=== PATIENT | male | born 1965 | race Caucasian/White ===

== ENCOUNTER 2020-09-12 08:23 | Day surgery (SDC) | payer BC ==
[2020-09-02 11:05] VITALS: BMI 38.0
[2020-09-12] MEDS ORDERED: traMADol HCL 50 MG TABLET PO PRN (09:06)
[2020-09-12] MEDS ORDERED: ONDANSETRON 4 MG/2 ML VIAL IVPUSH PRN (09:06)
[2020-09-12] MEDS ORDERED: oxyCODONE HCL 5 MG TABLET PO PRN (09:06)
[2020-09-12] MEDS ORDERED: LACTATED RINGERS SOLUTION 1,000 ML IV SCH (09:15)
[2020-09-12] MEDS ORDERED: ROPIVACAINE HCL 0.5% 30ML VIAL ONE (09:23)
[2020-09-12] MEDS ORDERED: MIDAZOLAM HCL 2 MG/2 ML SINGLE DOSE VIAL ONE (09:23)
[2020-09-12] MEDS ORDERED: PROPOFOL 20 ML ONE ×2 (09:50→10:27)
[2020-09-12] MEDS ORDERED: EPHEDRINE SULFATE/0.9% NACL/PF 50 MG/10 ML SYRINGE NR ONE (10:04)
[2020-09-12] MEDS ORDERED: oxyCODONE HCL 5 MG TABLET ONE (12:20)
[2020-09-12] MEDS ORDERED: ONDANSETRON 4 MG/2 ML VIAL ONE (12:21)
[2020-09-12 14:59] VITALS: TEMP 97.7
[2020-09-12 15:05] VITALS: BP 117/64; PULSE 94
== END 2020-09-12 14:40 | disposition home or self-care (01) ==
LOC: FASU 08:23
PROVIDERS: ATTEND Orthopaedic Surgery Sports Medicine
PROC: 0SSG0ZZ Reposition Left Ankle Joint, Open Approach (ICD-10-PCS; principal; 2020-09-12 10:15)
DX: S82.862A Displaced Maisonneuve's fracture of left leg, initial encounter for closed fracture (principal); S93.432A Sprain of tibiofibular ligament of left ankle, initial encounter; X58.XXXA Exposure to other specified factors, initial encounter; Y93.9 Activity, unspecified; Y92.9 Unspecified place or not applicable
CPT/HCPCS: 27829; C1713; 73610-TC-LT-FY; 73630-TC-LT; 76000-TC-FY; 82962; 94760

== ENCOUNTER 2020-10-20 21:07 | Inpatient (IN) | payer BC ==
[2020-10-20] MEDS ORDERED: SODIUM CHLORIDE 1,000 ML IV SCH (22:15)
[2020-10-20 22:27] LABS: BASO % 0.7 % (0-2.0); EOS % 3.7 % (0-4.5); HEMATOCRIT 41.5 % (35.4-49); HEMOGLOBIN 14.5 GM/dl (11.7-16.9); LYMPH % 11.7 % (8-40); MCH 33.3 pg (25.7-33.7); MEAN CELL VOLUME 95.3 fl (80-96); MEAN PLT VOLUME 9.3 fl (7.5-11.1); MONO % 6.5 % (3.8-10.2); NEUT % 77.4 % (42.8-82.8); PLATELET COUNT 151 10^3/uL (134-434); RBC 4.36 M/mm3 (4.00-5.60); RDW 13.2 % (11.9-15.9); WHITE BLOOD COUNT 6.1 K/mm3 (4.0-10.8)
[2020-10-20 22:29] LABS: ALBUMIN 4.1 g/dl (3.4-5.0); ALK PHOS 81 U/L (45-117); ANION GAP 15 MMOL/L (8-16); BILIRUBIN,TOTAL 1.4 mg/dl (0.2-1); CALCIUM 8.8 mg/dl (8.5-10); CHLORIDE 99 mmol/L (98-107); CO2 21 mmol/L (21-32); CREATININE 1.2 mg/dl (0.55-1.3); GLUCOSE,RANDOM 106 mg/dl (74-106); INR 1.27 (0.82-1.09); SGOT/AST 48 U/L (15-37); SGPT/ALT 49 U/L (13-61); SODIUM 135 mmol/L (136-145); TOT PROT 7.3 g/dl (6.4-8.2)
[2020-10-20] MEDS ORDERED: ACETAMINOPHEN 1000 MG/100 ML VIAL (NON FORMULARY) IVPB ONE (23:26)
[2020-10-21 01:03] VITALS: BMI 34.1
[2020-10-21] MEDS ORDERED: ACETAMINOPHEN 1000 MG/100 ML VIAL (NON FORMULARY) IVPB PRN (05:30)
[2020-10-21] MEDS: INSULIN SLIDING SCALE (NOVOLOG) 1 VIAL SQ SCH ×4 (06:54→21:34)
[2020-10-21] MEDS: DEXTROSE 5%-NORMAL SALINE 1,000 ML IV SCH (06:54)
[2020-10-21 08:18] LABS: CALCIUM 8.4 mg/dl (8.5-10); CREATININE 0.9 mg/dl (0.55-1.3)
[2020-10-21 08:19] LABS: INR 1.33 (0.82-1.09); PROTHROMBIN TIME (PATIENT) 14.6 SEC (10.2-13.0)
[2020-10-21 08:21] LABS: BASO % 0.6 % (0-2.0); EOS % 4.6 % (0-4.5); HEMATOCRIT 37.8 % (35.4-49); HEMOGLOBIN 12.9 GM/dl (11.7-16.9); LYMPH % 11.7 % (8-40); MCH 32.3 pg (25.7-33.7); MEAN CELL VOLUME 95.1 fl (80-96); MEAN PLT VOLUME 9.2 fl (7.5-11.1); MONO % 8.2 % (3.8-10.2); NEUT % 74.9 % (42.8-82.8); PLATELET COUNT 130 10^3/uL (134-434); RBC 3.98 M/mm3 (4.00-5.60); RDW 13.4 % (11.9-15.9); WHITE BLOOD COUNT 5.1 K/mm3 (4.0-10.8)
[2020-10-21] MEDS ORDERED: MIDAZOLAM HCL 2 MG/2 ML SINGLE DOSE VIAL ONE (11:45)
[2020-10-21] MEDS ORDERED: SUCCINYLCHOLINE CHLORIDE 200 MG/10 ML SYRINGE ONE (11:52)
[2020-10-21] MEDS ORDERED: VANCOMYCIN 1,000 MG VIAL (RESTRICTED TO ID ONLY) ONE ×2 (11:55→12:19)
[2020-10-21] MEDS ORDERED: ONDANSETRON 4 MG/2 ML VIAL ONE (12:08)
[2020-10-21] MEDS ORDERED: oxyCODONE HCL 5 MG TABLET PO PRN (13:07)
[2020-10-21] MEDS ORDERED: ONDANSETRON 4 MG/2 ML VIAL IVPUSH PRN (13:07)
[2020-10-21] MEDS: LACTATED RINGERS SOLUTION 1,000 ML IV SCH (14:44)
[2020-10-21] MEDS ORDERED: CEFEPIME HCL 2 GM VIAL (RESTRICTED TO ID) ONE (17:19)
[2020-10-21] MEDS ORDERED: DEXTROSE 5%-WATER 100 ML IVPB ONE (17:19)
[2020-10-21] MEDS: CEFEPIME 2 GM in DEXTROSE 5%-WATER 100 ML IVPB SCH (17:22)
[2020-10-21] MEDS: ATORVASTATIN CA 10 MG TABLET (FP) PO SCH (21:34)
[2020-10-21] MEDS: PANTOPRAZOLE 40 MG TABLET PO SCH (21:34)
[2020-10-21] MEDS: VANCOMYCIN 1 GRAM (PRE-DOCKED) 1,000 MG/250 ML BAG IVPB SCH (23:13)
[2020-10-22] MEDS ORDERED: CEFEPIME HCL 2 GM VIAL (RESTRICTED TO ID) ONE ×3 (01:07→17:31)
[2020-10-22] MEDS ORDERED: DEXTROSE 5%-WATER 100 ML IVPB ONE ×3 (01:07→17:31)
[2020-10-22] MEDS: CEFEPIME 2 GM in DEXTROSE 5%-WATER 100 ML IVPB SCH ×3 (01:08→17:39)
[2020-10-22] MEDS: DEXTROSE 5%-NORMAL SALINE 1,000 ML IV SCH (06:28)
[2020-10-22] MEDS: INSULIN SLIDING SCALE (NOVOLOG) 1 VIAL SQ SCH ×4 (06:29→22:09)
[2020-10-22 07:52] LABS: BASO % 0.8 % (0-2.0); EOS % 5.4 % (0-4.5); MCH 32.4 pg (25.7-33.7); MCHC 34.2 g/dl (32.0-35.9); MEAN CELL VOLUME 94.8 fl (80-96); MEAN PLT VOLUME 8.9 fl (7.5-11.1); MONO % 9.8 % (3.8-10.2); PLATELET COUNT 152 10^3/uL (134-434); RBC 4.01 M/mm3 (4.00-5.60); RDW 13.6 % (11.9-15.9); WHITE BLOOD COUNT 4.8 K/mm3 (4.0-10.8)
[2020-10-22 07:59] LABS: ALBUMIN 3.7 g/dl (3.4-5.0); BILIRUBIN,TOTAL 1.1 mg/dl (0.2-1); CREATININE 0.7 mg/dl (0.55-1.3); MAGNESIUM 1.7 mg/dL (1.8-2.4); TOT PROT 6.9 g/dl (6.4-8.2)
[2020-10-22] MEDS: HYDROCHLOROTHIAZIDE 25 MG TABLET (FP) PO SCH (09:30)
[2020-10-22] MEDS ORDERED: MAGNESIUM OXIDE 400 MG TABLET (FP) PO ONE (09:30)
[2020-10-22] MEDS: amLODIPine BESYLATE 10 MG TABLET (FP) PO SCH (09:30)
[2020-10-22] MEDS: MULTIVITAMINS (DAILY MVI) TABLET (FP) PO SCH (09:30)
[2020-10-22] MEDS: LOSARTAN POTASSIUM 50 MG TABLET PO SCH (09:30)
[2020-10-22] MEDS ORDERED: PATIENT'S OWN MEDICATION (NON-FORMULARY) (Olmesartan/Amlodipin/Hcthiazid [Olmsrtn-Amldpn-H PO SCH (10:00)
[2020-10-22] MEDS: VANCOMYCIN 1 GRAM (PRE-DOCKED) 1,000 MG/250 ML BAG IVPB SCH (11:42)
[2020-10-22] MEDS: ENOXAPARIN NA (PORCINE) 40 MG/0.4 ML DISP.SYRIN SQ SCH (12:40)
[2020-10-22] MEDS: LACTATED RINGERS SOLUTION 1,000 ML IV SCH (17:39)
[2020-10-22] MEDS: PANTOPRAZOLE 40 MG TABLET PO SCH (22:09)
[2020-10-22] MEDS: ATORVASTATIN CA 10 MG TABLET (FP) PO SCH (22:09)
[2020-10-23] MEDS ORDERED: DEXTROSE 5%-WATER 100 ML IVPB ONE ×3 (02:55→18:17)
[2020-10-23] MEDS ORDERED: CEFEPIME HCL 2 GM VIAL (RESTRICTED TO ID) ONE ×3 (02:55→18:17)
[2020-10-23] MEDS: CEFEPIME 2 GM in DEXTROSE 5%-WATER 100 ML IVPB SCH ×3 (03:00→18:30)
[2020-10-23] MEDS: INSULIN SLIDING SCALE (NOVOLOG) 1 VIAL SQ SCH ×4 (06:49→21:25)
[2020-10-23] MEDS: amLODIPine BESYLATE 10 MG TABLET (FP) PO SCH (11:21)
[2020-10-23] MEDS: HYDROCHLOROTHIAZIDE 25 MG TABLET (FP) PO SCH (11:21)
[2020-10-23] MEDS: LOSARTAN POTASSIUM 50 MG TABLET PO SCH (11:22)
[2020-10-23] MEDS: MULTIVITAMINS (DAILY MVI) TABLET (FP) PO SCH (11:22)
[2020-10-23] MEDS: ENOXAPARIN NA (PORCINE) 40 MG/0.4 ML DISP.SYRIN SQ SCH (11:22)
[2020-10-23] MEDS: VANCOMYCIN 1 GRAM (PRE-DOCKED) 1,000 MG/250 ML BAG IVPB SCH ×2 (12:30)
[2020-10-23] MEDS: LACTATED RINGERS SOLUTION 1,000 ML IV SCH (15:53)
[2020-10-23] MEDS ORDERED: LOCK ITEM NR ONE (19:54)
[2020-10-23] MEDS: ATORVASTATIN CA 10 MG TABLET (FP) PO SCH (21:25)
[2020-10-23] MEDS: PANTOPRAZOLE 40 MG TABLET PO SCH (21:25)
[2020-10-24] MEDS: CEFEPIME 2 GM in DEXTROSE 5%-WATER 100 ML IVPB SCH ×2 (02:32→11:13)
[2020-10-24] MEDS ORDERED: CEFEPIME HCL 2 GM VIAL (RESTRICTED TO ID) ONE ×2 (03:13→11:08)
[2020-10-24] MEDS ORDERED: DEXTROSE 5%-WATER 100 ML IVPB ONE ×2 (03:14→11:08)
[2020-10-24] MEDS: INSULIN SLIDING SCALE (NOVOLOG) 1 VIAL SQ SCH ×3 (06:20→16:28)
[2020-10-24 06:51] VITALS: PULSE 82
[2020-10-24 09:58] VITALS: BP 118/69; TEMP 98.3
[2020-10-24] MEDS: MULTIVITAMINS (DAILY MVI) TABLET (FP) PO SCH (11:13)
[2020-10-24] MEDS: LOSARTAN POTASSIUM 50 MG TABLET PO SCH (11:13)
[2020-10-24] MEDS: HYDROCHLOROTHIAZIDE 25 MG TABLET (FP) PO SCH (11:13)
[2020-10-24] MEDS: VANCOMYCIN 1 GRAM (PRE-DOCKED) 1,000 MG/250 ML BAG IVPB SCH ×2 (11:13)
[2020-10-24] MEDS: amLODIPine BESYLATE 10 MG TABLET (FP) PO SCH (11:14)
[2020-10-24] MEDS ORDERED: CASPOFUNGIN ACETATE 70 MG in SODIUM CHLORIDE 250 ML IVPB ONE (11:30)
[2020-10-24] MEDS: ENOXAPARIN NA (PORCINE) 40 MG/0.4 ML DISP.SYRIN SQ SCH (12:35)
[2020-10-24] MEDS: LACTATED RINGERS SOLUTION 1,000 ML IV SCH (14:49)
[2020-10-24] MEDS ORDERED: DAPTOMYCIN 600 MG in SODIUM CHLORIDE 50 ML IVPB SCH ×2 (15:00)
== END 2020-10-24 18:44 | disposition home or self-care (01) | DRG 862 ==
LOC: FER 21:07 → FM/S 23:05 → UNDOADMIN 10-21 00:09 → FM/S 10-21 00:09
PROVIDERS: ADMIT Internal Medicine; ATTEND Nurse Practitioner Acute Care
PROC: 3E10X8X Irrigation of Skin and Mucous Membranes using Irrigating Substance, Diagnostic (ICD-10-PCS; 2020-10-21)
PROC: 2W1TX6Z Compression of Left Foot using Pressure Dressing (ICD-10-PCS; 2020-10-21)
PROC: 0HDNXZZ Extraction of Left Foot Skin, External Approach (ICD-10-PCS; principal; 2020-10-21 12:16)
PROC: 02HV33Z Insertion of Infusion Device into Superior Vena Cava, Percutaneous Approach (ICD-10-PCS; 2020-10-24)
PROC: B548ZZA Ultrasonography of Superior Vena Cava, Guidance (ICD-10-PCS; 2020-10-24)
DX: T81.41XA Infection following a procedure, superficial incisional surgical site, initial encounter (principal); A41.1 Sepsis due to other specified staphylococcus; K21.9 Gastro-esophageal reflux disease without esophagitis; E78.00 Pure hypercholesterolemia, unspecified; I10 Essential (primary) hypertension; B95.7 Other staphylococcus as the cause of diseases classified elsewhere; Y83.8 Other surgical procedures as the cause of abnormal reaction of the patient, or of later complication, without mention of misadventure at the time of the procedure; E11.9 Type 2 diabetes mellitus without complications; T81.44XA Sepsis following a procedure, initial encounter
CPT/HCPCS: 36415; 36569; 71045-TC-FY; 77001-TC-FY; 80048; 80053; 82550; 82962; 83605; 83735; 84484; 85025; 85610; 85730; 86850; 86900; 86901; 87040; 87070; 87102; 87106; 87116; 87186; 87205; 87206; 87210; 93005; 94760; 99285-25; C1751; C9803; J0131; J0878; U0003; U0005

== ENCOUNTER 2020-12-12 11:06 | Day surgery (SDC) | payer BC ==
[2020-12-09 16:33] VITALS: BMI 34.1
[2020-12-12] MEDS ORDERED: MIDAZOLAM HCL 2 MG/2 ML SINGLE DOSE VIAL ONE ×3 (13:22→14:39)
[2020-12-12] MEDS ORDERED: fentaNYL CITRATE 250 MCG/5 ML VIAL ONE (13:22)
[2020-12-12] MEDS ORDERED: PROPOFOL 20 ML ONE ×4 (13:59→14:41)
[2020-12-12] MEDS ORDERED: BUPIVACAINE HCL 50 ML ONE (14:13)
[2020-12-12] MEDS ORDERED: BUPIVACAINE HCL 100 ML ONE (14:40)
[2020-12-12] MEDS ORDERED: DEXAMETHASONE SOD PHOSPHATE 4 MG/1 ML VIAL ONE (14:53)
[2020-12-12] MEDS ORDERED: ONDANSETRON 4 MG/2 ML VIAL ONE (14:53)
[2020-12-12] MEDS ORDERED: PHENYLEPHRINE HCL 10 MG/1 ML SINGLE DOSE VIAL ONE (14:53)
[2020-12-12] MEDS ORDERED: ceFAZolin SODIUM 1 GM VIAL ONE (14:55)
[2020-12-12] MEDS ORDERED: POTASSIUM CHLORIDE TABS 20 MEQ TABLET.ER (FP) PO ONE (16:18)
[2020-12-12] MEDS ORDERED: ONDANSETRON 4 MG/2 ML VIAL IVPUSH PRN (16:18)
[2020-12-12] MEDS ORDERED: ACETAMINOPHEN 1000 MG/100 ML VIAL IVPB PRN (16:19)
[2020-12-12] MEDS ORDERED: KETOROLAC TROMETHAMINE 30 MG/1 ML VIAL IVPUSH PRN (16:19)
[2020-12-12] MEDS ORDERED: LACTATED RINGERS SOLUTION 1,000 ML IV SCH (16:30)
[2020-12-12] MEDS: VALSARTAN 160 MG TABLET PO SCH (17:59)
[2020-12-12] MEDS: HYDROCHLOROTHIAZIDE 25 MG TABLET (FP) PO SCH (18:00)
[2020-12-12] MEDS ORDERED: CASPOFUNGIN ACETATE 50 MG in SODIUM CHLORIDE 250 ML IVPB ONE (18:00)
[2020-12-12] MEDS: amLODIPine BESYLATE 10 MG TABLET (FP) PO SCH (18:00)
[2020-12-12] MEDS ORDERED: DAPTOMYCIN 600 MG in SODIUM CHLORIDE 50 ML IVPB ONE (18:00)
[2020-12-12 18:35] LABS: CALCIUM 8.8 mg/dl (8.5-10); CREATININE 0.8 mg/dl (0.55-1.3)
[2020-12-12] MEDS ORDERED: PANTOPRAZOLE 40 MG TABLET PO SCH (22:00)
[2020-12-13 08:19] LABS: BASO % 0.7 % (0-2.0); EOS % 0.1 % (0-4.5); HEMATOCRIT 39.5 % (35.4-49); HEMOGLOBIN 13.8 GM/dl (11.7-16.9); LYMPH % 8.1 % (8-40); MCHC 34.8 g/dl (32.0-35.9); MEAN CELL VOLUME 89.2 fl (80-96); MEAN PLT VOLUME 8.9 fl (7.5-11.1); MONO % 3.4 % (3.8-10.2); NEUT % 87.7 % (42.8-82.8); PLATELET COUNT 168 10^3/uL (134-434); RBC 4.43 M/mm3 (4.00-5.60); RDW 12.4 % (11.9-15.9); WHITE BLOOD COUNT 8.6 K/mm3 (4.0-10.8)
[2020-12-13 08:45] LABS: ERYTHROCYTE SEDIMENTATION RATE 16 mm/hr (0-20)
[2020-12-13] MEDS: HYDROCHLOROTHIAZIDE 25 MG TABLET (FP) PO SCH (09:35)
[2020-12-13] MEDS: amLODIPine BESYLATE 10 MG TABLET (FP) PO SCH (09:36)
[2020-12-13] MEDS: VALSARTAN 160 MG TABLET PO SCH (09:36)
[2020-12-13] MEDS ORDERED: PATIENT'S OWN MEDICATION (NON-FORMULARY) (Olmesartan/Amlodipin/Hcthiazid [Olmsrtn-Amldpn-H PO SCH (10:00)
[2020-12-13] MEDS ORDERED: CHOLECALCIFEROL (VIT D3) 1,000 UNIT (25 MCG) TABLET PO SCH (10:00)
[2020-12-13] MEDS ORDERED: ENOXAPARIN NA (PORCINE) 40 MG/0.4 ML DISP.SYRIN SQ SCH (10:00)
[2020-12-13] MEDS ORDERED: DAPTOmycin 500 MG VIAL (RESTRICTED TO ID) IVPB SCH (10:00)
[2020-12-13] MEDS ORDERED: CASPOFUNGIN ACETATE 50 MG IVPB SCH (10:00)
[2020-12-13] MEDS ORDERED: CELECOXIB 200 MG CAPSULE PO SCH (10:00)
[2020-12-13 14:11] VITALS: BP 117/54; PULSE 68; TEMP 97.7
[2020-12-13] MEDS ORDERED: DAPTOMYCIN 600 MG in SODIUM CHLORIDE 50 ML IVPB SCH (18:00)
[2020-12-13] MEDS ORDERED: CASPOFUNGIN ACETATE 50 MG in SODIUM CHLORIDE 250 ML IVPB SCH (19:00)
== END 2020-12-13 17:59 | disposition home or self-care (01) ==
LOC: FASU 11:06 → FM/S 17:13 → FASU 12-13 17:59
PROVIDERS: ATTEND Orthopaedic Surgery Sports Medicine
PROC: 0JBP0ZZ Excision of Left Lower Leg Subcutaneous Tissue and Fascia, Open Approach (ICD-10-PCS; 2020-12-12)
PROC: 0SPG04Z Removal of Internal Fixation Device from Left Ankle Joint, Open Approach (ICD-10-PCS; principal; 2020-12-12 14:51)
DX: T84.625A Infection and inflammatory reaction due to internal fixation device of left fibula, initial encounter (principal); T81.42XA Infection following a procedure, deep incisional surgical site, initial encounter; Y79.1 Therapeutic (nonsurgical) and rehabilitative orthopedic devices associated with adverse incidents; Y92.9 Unspecified place or not applicable
CPT/HCPCS: 36415; 80048; 85025; 85651; 86140; 87070; 87102; 87116; 87186; 87205; 87206; 87210; 88300-TC; 94760; J0637; J0878